=== PATIENT | female | born 1980 | race Caucasian/White ===

== ENCOUNTER 2020-10-06 14:35 | Outpatient (CLI) | payer OTHER, SELFPAY ==
--- NOTE | ~2020-10-06 | XR_ITS ---
XR foot LT min 3V DATE: 10/06/2020 14:58 INDICATION: Stress fracture, TECHNIQUE: 4 views COMPARISON: None FINDINGS: Mild plantar and posterior calcaneal enthesopathy. Pes planus. Diffuse osteopenia. There is mild osteoarthritic change at the first and second metatarsophalangeal joints. No fracture, dislocation, periosteal reaction or bone destruction is detected. IMPRESSION: No fracture detected Mild plantar and posterior calcaneal enthesopathy Reviewed, dictated and finalized at location A.
== END 2020-10-06 14:36 ==
PROVIDERS: Visit Provider Podiatrist Foot & Ankle Surgery
DX: M77.32 Calcaneal spur, left foot (principal)
CPT/HCPCS: 73630

== ENCOUNTER 2021-03-06 18:30 | Emergency (ER) | payer OTHER, SELFPAY ==
--- NOTE | ~2021-03-06 | XR_ITS ---
XR foot LT min 3V 03/06/2021 18:49 INDICATION: Left foot pain after trauma PROCEDURE: 4 views left foot COMPARISON: No prior studies for comparison. FINDINGS: Fracture, dislocation or subluxation is not identified. Lisfranc joint intact. The soft tis sues appear within normal limits. No foreign bodies are identified. IMPRESSION: 1: NO ACUTE BONE OR JOINT ABNORMALITY IDENTIFIED. Reviewed, dictated and finalized at location A.
--- NOTE | 2021-03-06 18:36 | ED.LOWEXIN ---
HPI - Extremity Injury (Lower) General Chief Complaint: Extremity Injury, Lower Stated Complaint: left foot pain Time Seen by Provider: 03/06/21 18:36 Source: patient and RN notes reviewed Mode of arrival: ambulatory Limitations: no limitations History of Present Illness HPI Narrative: 41-year-old female presents to the [facility] with complaints of left dorsal foot pain. Patient states that she dropped a board on her foot approximately 1830 last night. Has not taken anything for pain. Related Data Allergies Allergy/AdvReac Type Severity Reaction Status Date / Time morphine Allergy Severe PRESSURE Verified 03/06/21 18:32 IN CHEST-FELT LIKE HAVING HEART ATTACK codeine Allergy Intermediate Palpitation Verified 03/06/21 18:32 s prochlorperazine Allergy Intermediate Palpitation Verified 03/06/21 18:32 s HYDROCODONE BIT Allergy Severe Nausea and Uncoded 03/06/21 18:32 Vomiting Review of Systems Review of Systems: All systems reviewed & are unremarkable except as noted in HPI and below Constitutional: Constitutional: Reports no additional constitutional complaints Eyes: Eyes: Reports no additional eye complaints ENT: Reports system reviewed and no additional complaints, except as documented Cardiovascular: Cardiovascular: Reports no additional cardiovascular complaints Respiratory: Respiratory: Reports no additional respiratory complaints Musculoskeletal: Musculoskeletal: Reports as per HPI Comments: Left foot pain Integumentary/Breasts: Skin/Breast: Reports system reviewed and no additional complaints, except as docu, Denies pruritus and Denies rash Neurologic: Reports system reviewed and no additional complaints, except as documented Psychiatric: Psychiatric: Reports no additional psychiatric complaints Allergic/Immunologic: Allergic/Immunologic: Reports no additional allergic/immunologic complaints PMFSH Past Medical History Medical History (Updated 03/06/21 @ 19:01 by Paula Matos) Urolithiasis Surgical History Surgical History Hx of cholecystectomy Social History Social History Gender identity (if verbalized by the patient): Female Comments At the time of my signature, I reviewed and agree with the nursing past medical, surgical, social, and family history. There is no relevant family history pertinent to the patient complaint. Exam Const: General: healthy appearing, no acute distress and alert Nutritional Appearance: well nourished and obese Orientation/consciousness: patient oriented x3 Limitations: no limitations HENMT: Head: normal to inspection Eyes: Pupils: Equal, round and reactive pupils present Neck: Neck: normal visual inspection, no lymphadenopathy and no meningeal signs Chest: Chest palpation & inspection: normal inspection of the chest Resp: Effort & Inspection: normal respiratory effort Auscultation: clear to auscultation bilaterally Cardio: Rate: regular rate Rhythm: regular rhythm : General: Yes no CVA tenderness Skin: General skin exam: normal color Rashes: no rashes Wounds: no wounds Neuro: General: patient oriented x3, moves all extremities and no meningeal signs Speech: normal speech Gait exam (Neuro): gait abnormal (Limp favoring left side) Extrem: Left lower extremity: foot Ankle/foot/toe images: 1. Bruising swelling tenderness noted Course Course Emergency Course: Discharge instructions reviewed with patient, as well as provided in writing per nursing staff. The instructions also include specific and strict return/GO TO THE ER as well as f/u information. All questions have been answered, and the patient deny any further questions with discharge and discharge plan. Vital Signs Vital signs: Vital Signs Temperature 97.3 F L 03/06/21 18:37 Pulse Rate 108 H 03/06/21 18:37 Respiratory Rate 16
[2021-03-06 18:37] VITALS: BP 115/84; PULSE 108; RESP 16; TEMP 36.3; O2SAT 99
[2021-03-06 18:41] VITALS: BP 115/84; PULSE 108; RESP 16; TEMP 36.3; O2SAT 99
== END 2021-03-06 19:17 | disposition home or self-care (01) ==
PROVIDERS: Emergency Provider Nurse Practitioner
DX: S90.32XA Contusion of left foot, initial encounter (principal); W22.8XXA Striking against or struck by other objects, initial encounter
CPT/HCPCS: 73630; 99213; G0463

== ENCOUNTER 2021-06-22 13:21 | Emergency (ER) | payer OTHER, SELFPAY ==
[2021-06-22 13:28] VITALS: BP 118/78; PULSE 114; RESP 16; TEMP 37.3; O2SAT 99
--- NOTE | 2021-06-22 15:29 | ED.URI ---
HPI - URI/Sore Throat General Chief Complaint: Upper Respiratory Infection Stated Complaint: fever/vomiting/penny Time Seen by Provider: 06/22/21 15:20 Source: patient and RN notes reviewed Mode of arrival: ambulatory Limitations: no limitations History of Present Illness HPI Narrative: Patient presents today complaining of body aches, nasal congestion, nausea and vomiting, fever up to 102, loss of taste and smell. Symptoms began at 1:00 this morning. Last episode of vomiting was at 6:00 this morning. She has been taking ibuprofen with some relief. She is 2 days shy of being fully vaccinated against COVID-19. MD elicited complaint: fever and other (Body aches) Related Data Home Medications Medication Instructions Recorded Confirmed No Home Medications 06/22/21 06/22/21 Allergies Allergy/AdvReac Type Severity Reaction Status Date / Time morphine Allergy Severe PRESSURE Verified 06/22/21 15:09 IN CHEST-FELT LIKE HAVING HEART ATTACK codeine Allergy Intermediate Palpitation Verified 06/22/21 15:09 s prochlorperazine Allergy Intermediate Palpitation Verified 06/22/21 15:09 s HYDROCODONE BIT Allergy Severe Nausea and Uncoded 06/22/21 15:09 Vomiting Review of Systems Review of Systems: CONSTITUTIONAL: Denies chills, or sweats.+ Body aches fever EYES: Denies visual changes, redness, or discharge. ENT: Denies rhinorrhea, sore throat, or otalgia.+ Loss of taste and smell, congestion CARDIOVASCULAR: Denies chest pain, palpitations, or edema. RESPIRATORY: Denies cough or dyspnea. GASTROINTESTINAL: Denies abdominal pain, or diarrhea.+ Nausea and vomiting GENITOURINARY: Denies dysuria or hematuria. SKIN: Denies rash, itching, or wounds. MUSCULOSKELETAL: Denies back pain, joint pain, or myalgia. NEUROLOGIC: Denies headache, numbness, tingling, or weakness. PSYCH: Denies depression or anxiety. [facility] Past Medical History Medical History (Updated 06/22/21 @ 16:01 by Marilee Estes, [facility], ) Urolithiasis Surgical History Surgical History Hx of cholecystectomy Social History Social History Gender identity (if verbalized by the patient): Female Comments At time of signature, I have reviewed and agree with nursing past medical, surgical, social and family history unless otherwise noted. Please see nursing chart for further information. There is no relevant family history pertinent to the presenting complaint Exam Narrative: GENERAL: Mildly ill-appearing, well-nourished, and in no acute distress. HEAD: Normocephalic, atraumatic. EYES: EOMI. No redness or drainage. Conjunctivae normal. ENT: Mucous membranes pink and moist. Nares congested. No rhinorrhea. TMs normal bilaterally. Throat normal. Uvula midline. NECK: Normal AROM. Supple. No lymphadenopathy. CHEST: No respiratory distress. Clear to auscultation. HEART: Regular rate and rhythm. No murmur appreciated. Normal peripheral pulses. EXTREMITIES: Normal range of motion. No edema. SKIN: Warm, dry, no rash. Capillary refill normal. Normal skin turgor. NEURO: No focal deficits. Alert and oriented x3. Gait steady. PSYCH: Normal affect. No signs of depression or anxiety. Course Vital Signs Vital signs: Vital Signs Temperature 99.2 F 06/22/21 13:28 Pulse Rate 114 H 06/22/21 13:28 Respiratory Rate 16 06/22/21 13:28 Blood Pressure 118/78 06/22/21 13:28 Pulse Oximetry 99 06/22/21 13:28 Temperature 99.2 F 06/22/21 13:28 Pulse Rate 114 H 06/22/21 13:28 Respiratory Rate 16 06/22/21 13:28 Blood Pressure 118/78 06/22/21 13:28 Pulse Oximetry 99 06/22/21 13:28 Reviewed MDM - URI/Sore Throat Differential Diagnosis Differential diagnosis: Likely upper respiratory infection, viral infection, influenza, pharyngitis and other (COVID-19) Lab Data Attestation: I reviewed the patient's
[2021-06-23 20:34] LABS: SARS-CoV-2 RNA PCR Negative
== END 2021-06-22 16:15 | disposition home or self-care (01) ==
PROVIDERS: Emergency Provider Nurse Practitioner
DX: B34.9 Viral infection, unspecified (principal); Z20.822 Contact with and (suspected) exposure to COVID-19
CPT/HCPCS: 87426; 87804; 99213; C9803; G0463; U0003; U0005

== ENCOUNTER 2021-10-30 21:24 | Emergency (ER) | payer OTHER, SELFPAY ==
--- NOTE | ~2021-10-30 | CT_ITS ---
EXAMINATION: CT abdomen pelvis wo con DATE: 10/30/2021 23:51 INDICATION: Right flank and right lower quadrant abdominal pain. Hematuria. History of kidney stones. TECHNIQUE: Computed tomography (CT) of the abdomen and pelvis was performed without intravenous contr ast. Automated exposure control and iterative reconstruction technique were employed. Exam dose: 762 .45 mGy-cm total exam DLP. COMPARISON: None. FINDINGS: Right lower lobe calcified pulmonary granuloma. There is mild infiltrate and/atelectasis in the lower lung zones, particularly the lower lobes. There are 2 nonspecific approximately 4 4.5 mm left lower lobe pulmonary nodules. Normal heart size. No pericardial or pleural effusion. Small sliding hiatal hernia. Status post cholecystectomy. The liver, spleen, pancreas, bile ducts and pancreatic duct are unremark able. Normal morphology of the adrenal glands. Approximately 3.1 cm right renal cyst. There is mild to moderate right hydroureteronephrosis secondar y to a 4 mm obstructing stone of the proximal right ureter. No other urinary tract calculus or left-s ided hydronephrosis is noted. The urinary bladder is unremarkable. There is an IUD within the retroflexed uterus. The adnexal areas are unremarkable. There is mild atherosclerotic calcification but no aneurysm of the abdominal aorta. No intraperitonea l or retroperitoneal or pelvic mass lesion or adenopathy or ascites. There is a medially directed cecum consistent with retained cecal mesentery. Normal appendix. No bowel obstruction, bowel wall thickening, pneumatosis or intraperitoneal free air. Very small fat-containing umbilical hernia. L2 limbus vertebra. Congenital anomaly of T7 vertebral body. IMPRESSION: 4 mm proximal right ureteral calcified obstructing calculus with mild to moderate right hydroureteronephrosis 3.1 cm right renal cyst Small sliding hiatal hernia Normal appendix Retroflexed uterus with IUD Reviewed, dictated and finalized at Location A. Reviewed, dictated and finalized at location A. IMPRESSION: 4 mm proximal right ureteral calcified obstructing calculus with m ild to moderate right hydroureteronephrosis 3.1 cm right renal cyst Small sliding hiatal hernia Normal appendix Retroflexed uterus with IUD
[2021-10-30 21:30] VITALS: BP 143/94; PULSE 116; RESP 18; TEMP 36.5; O2SAT 99
--- NOTE | 2021-10-30 21:59 | ED.GENADULT ---
HPI - General Adult General Chief complaint: Abdominal Pain Stated complaint: abdominal pain and puking Time Seen by Provider: 10/30/21 21:39 Source: patient Mode of arrival: ambulatory Limitations: no limitations History of Present Illness HPI narrative: 41-year-old female presenting the emergency department for evaluation of right flank pain and right lower quadrant pain. Patient states the pain has been persistent today and patient has been taking ibuprofen for pain control without significant improvement. Patient does have a prior history of kidney stones and states this feels similar but is just in a different location. Related Data Allergies Allergy/AdvReac Type Severity Reaction Status Date / Time acetaminophen [From Vicodin] AdvReac Anxiety Verified 10/30/21 21:35 codeine AdvReac Anxiety Verified 10/30/21 21:35 hydrocodone [From Vicodin] AdvReac Anxiety Verified 10/30/21 21:35 morphine AdvReac Anxiety Verified 10/30/21 21:35 prochlorperazine AdvReac Anxiety Verified 10/30/21 21:35 [From Compazine] Review of Systems Review of Systems: CONSTITUTIONAL: Denies fever, chills, or sweats. EYES: Denies visual changes, redness, or discharge. ENT: Denies rhinorrhea, congestion, sore throat, or otalgia. CARDIOVASCULAR: Denies chest pain, palpitations, or edema. RESPIRATORY: Denies cough or dyspnea. GASTROINTESTINAL: Right lower quadrant pain and some right lower flank pain. GENITOURINARY: Denies any hematuria or pain with urination. SKIN: Denies rash or itching. MUSCULOSKELETAL: Denies back pain, joint pain, or myalgia. NEUROLOGIC: Denies headache, numbness, or weakness. PSYCHIATRIC: Denies anxiety or depression. Exam Narrative: APPEARANCE: Well appearing, no pain, no distress, well-nourished. HEAD: normocephalic, atraumatic. EYES: PERRLA/EOMI, conjunctivae clear. NOSE: Normal no drainage THROAT: Pharynx clear, no exudate. NECK: Supple. No adenopathy, no masses. RESPIRATORY: Airway patent, respirations nonlabored. Clear to auscultation bilaterally, no rales, rhonchi, wheezing. CARDIOVASCULAR: Regular rate and rhythm without murmurs rubs or gallops. ABDOMINAL: Soft, nontender, nondistended, normal bowel sounds MUSCULOSKELETAL: Moves all extremities. Strength/ROM intact, No edema, No calf tenderness. NEURO: Alert. Cranial nerves II through XII intact. Grossly intact SKIN: Warm, dry. Normal Color Course Course Emergency Course: Patient did feel improved with treatment. CT did show a 5 mm ureteral calculi in the proximal right ureter. Patient does have a leukocytosis of 14.5. UA is otherwise nonconcerning for underlying infection. Patient was provided follow-up with urology. All questions and concerns were addressed. Patient was in no distress at time of discharge from the emergency room. Vital Signs Vital signs: Vital Signs Temperature 97.7 F 10/30/21 21:30 Pulse Rate 116 H 10/30/21 21:30 Respiratory Rate 18 10/30/21 21:30 Blood Pressure 143/94 H 10/30/21 21:30 Pulse Oximetry 99 10/30/21 21:30 Temperature 97.7 F 10/30/21 21:30 Pulse Rate 75 10/31/21 03:00 Respiratory Rate 19 10/31/21 03:00 Blood Pressure 120/82 10/31/21 03:00 Pulse Oximetry 97 10/31/21 03:00 Medical Decision Making Vital Signs Vital Signs: Vital Signs Temperature 97.7 F 10/30/21 21:30 Pulse Rate 116 H 10/30/21 21:30 Respiratory Rate 18 10/30/21 21:30 Blood Pressure 143/94 H 10/30/21 21:30 Pulse Oximetry 99 10/30/21 21:30 Temperature 97.7 F 10/30/21 21:30 Pulse Rate 75 10/31/21 03:00 Respiratory Rate 19 10/31/21 03:00 Blood Pressure 120/82 10/31/21 03:00 Pulse Oximetry 97 10/31/21 03:00 Lab Data Lab results reviewed: Yes I reviewed the patient's lab results. Result diagrams: 10/30/21 22:37 10/30/21 22:37 Labs: Lab Results 10/30/21 10/30/21 10/30/21 Range/Units 22:37 22:37 22:37 WBC 14.5 H (4.5-10.0) K/mm3 RBC 5.08 (4.6-6.
[2021-10-30] MEDS: SODIUM CHLORIDE 0.9% IV 1,000 ML 999 ML IV CONT (22:29)
[2021-10-30] MEDS: ONDANSETRON INJ 4 MG/2 ML VIAL IV PUSH (22:29)
[2021-10-30] MEDS: fentaNYL CITRATE INJ (*CRX) 100 MCG/2 ML VIAL 50 MCG IV PUSH (22:29)
[2021-10-30 22:45] LABS: Basophils Absolute Auto 0.1 K/mm3 (0.0-0.1); Basophils Percent Auto 0.4 % (0.2-1.2); Eosinophils Absolute Auto 0.1 K/mm3 (0-0.3); Eosinophils Percent Auto 0.8 % (0-4.4); Hematocrit 45.6 % (42.0-52.0); Hemoglobin 14.5 g/dL (14.0-18.0); Immature Granulocyte Absolute 0.06 K/mm3 (0.00-0.031); Immature Granulocyte Percent A 0.4 % (0-0.5); Lymphocytes Absolute Auto 3.01 K/mm3 (0.9-3.2); Lymphocytes Percent Auto 20.8 % (18.3-44.2); Mean Corpuscular HGB Conc 31.8 g/dl (32-36); Mean Corpuscular Hemoglobin 28.5 pg (26-34); Mean Corpuscular Volume 89.8 fl (80-100); Mean Platelet Volume 10.3 fl (7.4-10.4); Monocytes Percent Auto 7.2 % (2.6-8.5); Neutrophils Absolute Auto 10.2 K/mm3 (1.3-6.7); Neutrophils Percent Auto 70.4 % (45.5-73.1); Platelet Count Result 383 k/mm3 (150-375); Red Blood Count 5.08 M/mm3 (4.6-6.20); Red Cell Distribution Width 13.7 % (11.5-14.5); White Blood Count 14.5 K/mm3 (4.5-10.0)
[2021-10-30 22:59] LABS: Alanine Aminotransferase 21 U/L (6-50); Albumin Level 4.2 g/dL (3.5-5.1); Alkaline Phosphatase 106 U/L (38-126); Anion Gap 6 mmol/L (8-16); Aspartate Amino Transferase 21 U/L (17-59); Bilirubin,Total 0.1 mg/dL (0.2-1.3); Blood Urea Nitrogen 18 mg/dL (9-20); Calcium 9.1 mg/dL (8.4-10.2); Carbon Dioxide 23 mmol/L (22-30); Chloride 106 mmol/L (98-107); Estimated CRCL calculation 103 ml/min; Estimated Glomerular Filt Rate > 60; Glucose 114 mg/dL (65-110); Lipase 145 U/L (23-300); Potassium 3.9 mmol/L (3.4-5.0); Sodium 135 mmol/L (137-145)
[2021-10-30 23:01] VITALS: BP 149/97; O2SAT 96
[2021-10-30 23:01] LABS: Lactic Acid Reflex 1.4 mmol/L (0.7-2.0)
[2021-10-30 23:12] LABS: Appearance Urine Clear (Clear); Bilirubin Urine Negative (Negative); Blood Urine 1+ (Negative); Color Urine Yellow (Yellow); Glucose Urine UA Negative (Negative); Ketones Urine Negative (Negative); Leukocyte Esterase Ur Negative LEU/UL (Negative); Nitrate Urine Negative (Negative); Protein Urine Negative (Negative); Specific Grav Ur 1.015 (1.001-1.035); Urobilinogen Urine 0.2 mg/dL (<2.0); pH Urine 5.5 (5.0-9.0)
[2021-10-30 23:17] LABS: Add Urine Microscopic? YES; Bacteria Urine Trace /hpf; Squamous Epithelial Cell Urine Few /hpf (Few); WBC Urine 0-3 /hpf
[2021-10-31 00:01] VITALS: BP 130/90; PULSE 79; RESP 16; O2SAT 96
[2021-10-31 00:31] VITALS: BP 136/95; PULSE 76; RESP 14; O2SAT 96
[2021-10-31 01:01] VITALS: BP 135/88; PULSE 84; RESP 18; O2SAT 96
[2021-10-31] MEDS: KETOROLAC 15 MG/ML VIAL (*BKC) IV PUSH (01:15)
[2021-10-31] MEDS: TAMSULOSIN HCL 0.4 MG CAPSULE PO (02:11)
[2021-10-31 03:00] VITALS: BP 120/82; PULSE 75; RESP 19; O2SAT 97
== END 2021-10-31 03:01 | disposition home or self-care (01) ==
PROVIDERS: Emergency Provider Emergency Medicine
DX: N13.2 Hydronephrosis with renal and ureteral calculous obstruction (principal)
CPT/HCPCS: 36415; 74176; 80053; 81001; 81025; 83605; 83690; 85025; 96361; 96374; 96375; 99284; A9270; J1885; J2405; J3010; J7030

== ENCOUNTER 2022-05-07 16:21 | Emergency (ER) | payer OTHER, SELFPAY ==
[2022-05-07 16:34] VITALS: BP 136/86; PULSE 112; RESP 18; TEMP 36.3; O2SAT 99
--- NOTE | 2022-05-07 18:01 | ED.URI ---
HPI - URI/Sore Throat General Chief Complaint: Upper Respiratory Infection Stated Complaint: Nausea,Cough,Sneezing Time Seen by Provider: 05/07/22 18:01 Source: patient Mode of arrival: ambulatory Limitations: no limitations History of Present Illness HPI Narrative: 42-year-old female presents with complaint of nasal congestion, sore throat, cough, fatigue, fever for 2 days. Also reports nausea, diarrhea. 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 Denies chest pain and shortness of breath. Taking Motrin to treat fever and pain. All systems reviewed and negative except as noted above. Related Data Home Medications Medication Instructions Recorded Confirmed No Home Medications 06/22/21 05/07/22 Allergies Allergy/AdvReac Type Severity Reaction Status Date / Time acetaminophen [From Vicodin] AdvReac Anxiety Verified 05/07/22 16:57 codeine AdvReac Anxiety Verified 05/07/22 16:57 hydrocodone [From Vicodin] AdvReac Anxiety Verified 05/07/22 16:57 morphine AdvReac Anxiety Verified 05/07/22 16:57 prochlorperazine AdvReac Anxiety Verified 05/07/22 16:57 [From Compazine] HYDROCODONE BIT Allergy Severe Nausea and Uncoded 05/07/22 16:57 Vomiting Review of Systems Review of Systems: CONSTITUTIONAL: Reports fever, chills, or sweats. EYES: Denies visual changes, redness, or discharge. ENT: reports rhinorrhea, congestion, sore throat. Denies otalgia. CARDIOVASCULAR: Denies chest pain, palpitations, or edema. RESPIRATORY: reports cough. Denies dyspnea. GASTROINTESTINAL: Denies abdominal pain, nausea, vomiting, or diarrhea. GENITOURINARY: Denies dysuria or hematuria. SKIN: Denies rash or itching. MUSCULOSKELETAL: Denies back pain, joint pain, or myalgia. NEUROLOGIC: Denies headache, numbness, or weakness. PSYCHIATRIC: Denies anxiety or depression. All other systems reviewed are negative, except as documented in HPI. [facility] Past Medical History Medical History (Updated 05/07/22 @ 18:22 by Sonya Duarte NP) Urolithiasis Surgical History Surgical History (Updated 11/01/21 @ 10:56 by Malaika Julian) Hx of cholecystectomy Social History Social History (System 11/01/21 @ 10:56 by Malaika Julian) Gender identity (if verbalized by the patient): Female Comments At time of signature, agree with nursing past medical, surgical, social and family history. There is no relevant family history pertinent to the presenting complaint. Exam Narrative: GENERAL: This is a well-nourished, well-developed patient, in no apparent distress. HEAD: normocephalic, atraumatic. EYES: PERRL. Sclera clear/white. Vision is grossly intact. EARS: External ears normal, auditory canals clear and without drainage, TMs normal without perforation. Hearing grossly intact. NOSE: External nose normal with no obvious nasal discharge, nares without redness, no rhinorrhea. THROAT: Mucous membranes moist, posterior pharynx clear. NECK: Neck supple, non-tender without lymphadenopathy, masses or thyromegaly. CARDIOVASCULAR: Regular rate and rhythm without murmurs, gallops, or rubs. RESPIRATORY: Clear to auscultation. Breath sounds equal bilaterally. No wheezes, rales, or rhonchi. SKIN: warm, Dry, intact with no suspicious lesions or rash, good texture and turgor. NEURO: awake, alert, and oriented to person, place and time. There were no obvious focal neurologic abnormalities. EXTREMITIES: No joint tenderness, effusion, or edema noted. Course Course Level of Care: Express Care Visit Vital Signs Vital signs: Vital Signs Temperature 36.3 C L 05/07/22 16:34 Pulse Rate 112 H 05/07/22 16:34 Respiratory Rate 18 05/07/22 16:34 Blood Pressure 136/86 05/07/22 16:34 Pulse Oximetry 99 05/07/22 16:34 Oxygen Delivery Room Air 05/07/22 16:34 Temperature 36.3 C L 05/07/22 16:34 Pulse Rate 112 H 05/07/22 16:34 Respiratory Rate 18 05/07/22 16:34 Blood Pressu
== END 2022-05-07 18:25 | disposition home or self-care (01) ==
PROVIDERS: Emergency Provider Nurse Practitioner Family; PCP Nurse Practitioner Family
DX: B34.9 Viral infection, unspecified (principal); Z20.822 Contact with and (suspected) exposure to COVID-19
CPT/HCPCS: 87081; 87426; 87804; 87880; 99213; C9803; G0463

== ENCOUNTER 2023-05-25 15:00 | Emergency (ER) | payer SELFPAY ==
[2023-05-25 15:12] VITALS: BP 129/76; PULSE 115; RESP 16; TEMP 39.2; O2SAT 99
[2023-05-25] MEDS: ONDANSETRON HCL ODT 4 MG TABLET SUBLINGUAL (15:26)
--- NOTE | 2023-05-25 15:53 | ED.NAVMDI ---
HPI - Nausea/Vomiting/Diarrhea General Chief complaint: Nausea/Vomiting/Diarrhea Stated complaint: Bodyaches/Vomiting Time Seen by Provider: 05/25/23 15:45 Source: patient and RN notes reviewed Mode of arrival: ambulatory Limitations: no limitations History of Present Illness HPI Narrative: Patient presents today complaining of nausea, vomiting, fever, body aches, headache since 1:00 a.m. this morning. Patient does not have a functioning thermometer at home and is unsure what her fever was denies abdominal pain or diarrhea. Daughter currently has strep throat. She took 1 4 mg Zofran at home 1 hour prior to arrival without relief of symptoms. She has not been able to keep down fluids all day. States she has vomited, ?many? times. When asked she states more than 10. Related Data Home Medications Medication Instructions Recorded Confirmed No Home Medications 06/22/21 05/25/23 Allergies Allergy/AdvReac Type Severity Reaction Status Date / Time acetaminophen [From Vicodin] AdvReac Anxiety Verified 05/25/23 15:08 codeine AdvReac Anxiety Verified 05/25/23 15:08 hydrocodone [From Vicodin] AdvReac Anxiety Verified 05/25/23 15:08 morphine AdvReac Anxiety Verified 05/25/23 15:08 prochlorperazine AdvReac Anxiety Verified 05/25/23 15:08 [From Compazine] Review of Systems Review of Systems: CONSTITUTIONAL: Denies chills, or sweats.+ body aches, fever EYES: Denies visual changes, redness, or discharge. ENT: Denies rhinorrhea, congestion, sore throat, or otalgia. CARDIOVASCULAR: Denies chest pain, palpitations, or edema. RESPIRATORY: Denies cough or dyspnea. GASTROINTESTINAL: Denies abdominal pain. + nausea, vomiting GENITOURINARY: Denies dysuria or hematuria. SKIN: Denies rash, itching, or wounds. MUSCULOSKELETAL: Denies back pain, joint pain, or myalgia. NEUROLOGIC: Denies numbness, tingling, or weakness.+ headache PSYCH: Denies depression or anxiety. [facility] Past Medical History Medical History Urolithiasis Surgical History Surgical History Hx of cholecystectomy Social History Social History Gender identity (if verbalized by the patient): Female Comments At time of signature, I have reviewed and agree with nursing past medical, surgical, social and family history unless otherwise noted. Please see nursing chart for further information. There is no relevant family history pertinent to the presenting complaint Exam Narrative: GENERAL: Ill-appearing, well-nourished, and in no acute distress. HEAD: Normocephalic, atraumatic. EYES: EOMI. No redness or drainage. Conjunctivae normal. ENT: Mucous membranes pink and moist. Throat normal. Uvula midline. NECK: Normal AROM. Supple. No lymphadenopathy. CHEST: No respiratory distress. Clear to auscultation. HEART: Regular rate and rhythm. No murmur appreciated. Normal peripheral pulses. ABDOMEN: Soft, nontender, nondistended, normal active bowel sounds. EXTREMITIES: Normal range of motion. No edema. SKIN: Warm, dry, no rash. Capillary refill normal. Normal skin turgor. NEURO: No focal deficits. Alert and oriented x3. Gait steady. PSYCH: Normal affect. No signs of depression or anxiety. Course Course Level of Care: Express Care Visit Vital Signs Vital signs: Vital Signs Temperature 102.6 F H 05/25/23 15:12 Pulse Rate 115 H 05/25/23 15:12 Respiratory Rate 16 05/25/23 15:12 Blood Pressure 129/76 05/25/23 15:12 Pulse Oximetry 99 05/25/23 15:12 Oxygen Delivery Room Air 05/25/23 15:12 Temperature 102.6 F H 05/25/23 15:12 Pulse Rate 115 H 05/25/23 15:12 Respiratory Rate 16 05/25/23 15:12 Blood Pressure 129/76 05/25/23 15:12 Pulse Oximetry 99 05/25/23 15:12 Oxygen Delivery Room Air 05/25/23 15:12 Reviewed MDM - Nausea/
[2023-05-25] MEDS: KETOROLAC (*BKC) 60 MG/2 ML VIAL IM (16:00)
== END 2023-05-25 16:18 | disposition home or self-care (01) ==
PROVIDERS: Emergency Provider Nurse Practitioner; PCP Nurse Practitioner Family
DX: R11.2 Nausea with vomiting, unspecified (principal); R50.9 Fever, unspecified; Z20.822 Contact with and (suspected) exposure to COVID-19
CPT/HCPCS: 87081; 87426; 87804; 87880; 96372; 99213; A9270; C9803; G0463; J1885

== ENCOUNTER 2023-09-11 08:57 | Outpatient (CLI) | payer BC, MEDICAID, SELFPAY | END 2023-09-11 08:58 | disposition home or self-care (01) | LOC: ANHSURGERY 09:07 | PROVIDERS: PCP Nurse Practitioner Family; Visit Provider Obstetrics & Gynecology | DX: Z01.818 Encounter for other preprocedural examination (principal); R10.2 Pelvic and perineal pain | CPT/HCPCS: 36415; 86850; 86900; 86901 ==

== ENCOUNTER 2023-09-12 03:09 | Day surgery (SDC) | payer BC, MEDICAID, SELFPAY ==
[2023-07-19 14:24] VITALS: BMI 34.3
--- NOTE | 2023-07-19 14:28 | PC.NURSE ---
Report to the Outpatient Waiting Room, entrance under the green pavilion located off [facility], at time 7:30 on date 07/31/23. Planned Procedure Time: 9:30. Time changes happen often and if your time is changed the preop area will call you the afternoon before. - You and your visitor will be asked to self-screen and do not enter if you have any COVID symptoms. - A mask is optional within the hospital at this time. Patients may have clear liquids (water, carbonated beverages, clear teas, apple juice) until 3 hours prior to surgery (6:30) with a maximum of 20 ounces. - No food from midnight until time of surgery Take the following medications with a SIP of water the morning of surgery: PAIN PILL IF NEEDED DO NOT STOP ANY OF YOUR OTHER PRESCRIPTION MEDICATIONS PRIOR TO SURGERY ?EXCEPT THE FOLLOWING Medications to discontinue per physician: N/A Date to take last dose: N/A Please no make-up, nail azeri, hairspray, perfume, deodorant, or body powder the day of surgery. No jewelry (including any body piercings) or valuables the day of surgery, leave them at home. Please take a shower or bath the night before, or the morning of, surgery with an antibacterial soap. Wear comfortable, loose fitting clothing. - Jewelry must be removed prior to entering the operating room. Rings and piercings that are not removed may be cut off. - The hospital will not accept responsibility for valuables. - Please leave all valuables, including medications, at home the day of surgery. If you are going home after surgery, a licensed jukebox route driver must drive you home. - NO public transportation without another adult if you receive anesthesia. - We recommend that an adult stay with you for 24 hours following discharge. - We also recommend that you do not drive, make important decision, drink alcoholic beverages, or take any drugs that were not prescribed by your health care provider for at least 24 hours after your discharge time. Follow any additional instructions given to you from your surgeon. If you or anyone in your household have experienced Covid symptoms in the past week, please notify your surgeon or the nurse liaison at the phone number below for possible testing. Telephone instructions given to PT - DAVIN PEREZ and asked if any additional questions and then verbalized understanding. Patient advised to call surgeon office or pre surgery nurse liaison [phone] if any additional questions.
--- NOTE | 2023-09-05 10:55 | PC.NURSE ---
Report to the Outpatient Waiting Room, entrance under the green pavilion located off [facility], at time 6:00 on date 09/12/23. Planned Procedure Time: 7:30. Time changes happen often and if your time is changed the preop area will call you the afternoon before. - You and your visitor will be asked to self-screen and do not enter if you have any COVID symptoms. - A mask is optional within the hospital at this time. Patients may have clear liquids (water, carbonated beverages, clear teas, apple juice) until 3 hours prior to surgery (4:30) with a maximum of 20 ounces. - No food from midnight until time of surgery Take the following medications with a SIP of water the morning of surgery: HYDROCODONE IF NEEDED DO NOT STOP ANY OF YOUR OTHER PRESCRIPTION MEDICATIONS PRIOR TO SURGERY ?EXCEPT THE FOLLOWING Medications to discontinue per physician: IBUPROFEN Date to take last dose: PER DR. DORADO Please no make-up, nail canadian, hairspray, perfume, deodorant, or body powder the day of surgery. No jewelry (including any body piercings) or valuables the day of surgery, leave them at home. Please take a shower or bath the night before, or the morning of, surgery with an antibacterial soap. Wear comfortable, loose fitting clothing. - Jewelry must be removed prior to entering the operating room. Rings and piercings that are not removed may be cut off. - The hospital will not accept responsibility for valuables. - Please leave all valuables, including medications, at home the day of surgery. If you are going home after surgery, a licensed refrigerated company driver must drive you home. - NO public transportation without another adult if you receive anesthesia. - We recommend that an adult stay with you for 24 hours following discharge. - We also recommend that you do not drive, make important decision, drink alcoholic beverages, or take any drugs that were not prescribed by your health care provider for at least 24 hours after your discharge time. Follow any additional instructions given to you from your surgeon. If you or anyone in your household have experienced Covid symptoms in the past week, please notify your surgeon or the nurse liaison at the phone number below for possible testing. Telephone instructions given to GENESIS JIN and asked if any additional questions and then verbalized understanding. Patient advised to call surgeon office or pre surgery nurse liaison [phone] if any additional questions.
[2023-09-12] VITALS (10 sets, daily range): BP systolic 104–130; BP diastolic 61–85; PULSE 71–98; RESP 12–20; TEMP 36.2–36.9; O2SAT 92–100
[2023-09-12] MEDS: ACETAMINOPHEN 500 MG TABLET 1000 MG PO (06:29)
[2023-09-12] MEDS: LACTATED RINGERS 1,000 ML 30 ML IV CONT ×2 (06:35→09:49)
[2023-09-12] MEDS: KETOROLAC 15 MG/ML VIAL (*BKC) IV PUSH (06:37)
[2023-09-12] MEDS: SCOPOLAMINE 1 MG PATCH 1 PATCH TRANSDERM (06:49)
--- NOTE | 2023-09-12 06:50 | WPDANESEPPF ---
Anes - Initial Pre Proc Eval Procedure: Operation Date: 09/12/23 07:30 Proposed Procedures p Total Laparoscopic Hysterectomy with Bilateral Salpingectomy - Michaela Phipps MD Date/Time: 09/12/23 06:50 Surgeon: Michaela Phipps MD Pre Op Diagnosis: pelvic pain Patient Data Age: 43 Gender: F Height: 1.63 m Weight: 88.55 kg Last Vital Signs Temp 36.4 C 09/12/23 06:28 Pulse 91 09/12/23 06:28 Resp 20 09/12/23 06:28 BP 121/85 09/12/23 06:28 Pulse Ox 99 09/12/23 06:28 O2 Del Method Room Air 09/12/23 06:28 Allergies Allergy/AdvReac Type Severity Reaction Status Date / Time cyclobenzaprine AdvReac Anxiety Verified 09/12/23 06:14 [From Flexeril] hydrocodone [From Vicodin] AdvReac Anxiety Verified 09/12/23 06:14 morphine AdvReac Anxiety Verified 09/12/23 06:14 prochlorperazine AdvReac Anxiety Verified 09/12/23 06:14 [From Compazine] Home Medications Medication Instructions Recorded Confirmed Type hydrocodone 5 mg-acetaminophen 325 1 tablet PO Q6H PRN Pain 07/19/23 09/05/23 History mg tablet ibuprofen 600 mg tablet 600 mg PO QID PRN Pain 09/05/23 09/05/23 History Patient hx anesthesia problems: none Family hx anesthesia problems: none Results Review: All pre-operative results and documents have been reviewed as part of the pre-operative evaluation. FORMERLY [facility] Past Medical History Medical History (Updated 09/12/23 @ 06:50 by Torito Campos MD) Obesity Urolithiasis Surgical History Surgical History Hx of cholecystectomy Social History Social History Smoking packs per day: 0.5 Smoking cigarettes per day: 10.0 Years smoked: 10 Smoking pack-years: 5.00 Smoking status: Current some day smoker Tobacco type: cigarettes and e-cigarettes/vaping Alcohol intake: never Substance use: never Substance use type: does not use Living arrangements: with family Gender identity (if verbalized by the patient): Female Spiritual care concerns: No Anes - Eval Final PreProcedure Day of Procedure 09/12/23 06:50 Patient weight: obese Heart: regular rate and rhythm Lungs: clear to auscultation Airway: Mallampati scale class II Neurological: alert and oriented ASA classification: II Emergent: no Anesthetic plan: proceed Anesthesia type and monitoring: general ETT and standard monitoring Results Review: All pre-operative results and documents have been reviewed as part of the pre-operative evaluation. Informed Consent: The patient's anesthetic plan and its attendant risks and benefits were discussed with the patient/family/POA. Questions were solicited and answers provided to the satisfaction of the patient/family/POA.
--- NOTE | 2023-09-12 07:18 | WPDHPUPDATE1 ---
History and Physical Update Update Date/Time: 09/12/23 07:18 History and Physical has been reviewed, including an updated exam of the patient. There are NO changes in the patient's condition. Risks, benefits, and alternatives have been discussed and questions answered. Patient agrees to proceed with procedure.
[2023-09-12] MEDS: ceFAZolin SODIUM 1 GM VIAL (07:26)
[2023-09-12] MEDS: ceFAZolin 2 GM/D5W 50 ML 2 GM/50 ML BAG IVPB (07:35)
--- NOTE | 2023-09-12 09:53 | SUR.OPER ---
new krishna catheter inserted at 094o by Samanta Flores RN
[2023-09-12] MEDS: fentaNYL CITRATE INJ (*CRX) 100 MCG/2 ML VIAL 25 MCG IV PUSH ×8 (09:55→10:12)
--- NOTE | 2023-09-12 10:02 | W.PM.PROC2 ---
Procedure Note - Detailed Date of Procedure 09/12/23 Pre-op Diagnosis pelvic pain Post-op Diagnosis Same Procedure Performed Total laparoscopic hysterectomy. bilateral salpingectomy Surgeon Michaela Phipps MD Anesthesia General Indications Pelvic pain Findings mildly enlarged uterus, scarring in the right parametrium, normal-appearing ovaries and fallopian tubes. Description of Procedure This patient was taken to the operating room. She was prepped and draped in the dorsal lithotomy position after induction of general anesthesia. The uterine manipulator and Fara cup were placed. This was done with a speculum and tenaculum. The speculum was placed. The cervix was grasped with a tenaculum. The stay sutures were placed at 3 and 9:00 a.m.. The stay sutures of 0 Vicryl were brought through the appropriately sized Fara cup. The tip of the RIN manipulator was placed in the intrauterine cavity. The cup was slid into place around the cervix and into the fornices. It was locked into place. The sutures were then wrapped around the handle and tied under tension. A 5 mm skin incision was made in the left upper quadrant the abdomen. A 5 mm trocar was inserted into the intrauterine cavity under direct visualization of the scope. Pneumoperitoneum was achieved. A left lower quadrant 11 mm incision was made with scalpel. An 11 mm trocar was inserted into the anterior abdominal cavity under direct visualization the scope. A 5 mm infraumbilical incision was made with a scalpel and a 5 mm trocar was inserted the intra-abdominal cavity under direct visualization of the scope. Bilateral ureteral lysis was performed. This was done from the pelvic brim down to the uterine artery. This was done with careful dissection using sharp and blunt dissection. The fallopian tubes were removed bilaterally. The mesosalpinx around the fallopian tubes were cauterized transected with LigaSure cautery. This was done in a bilateral fashion from the ovary to the uterine cornua. The fallopian tube was transected at the uterine cornu and amputated bilaterally. The tube was taken out the left lower quadrant trocar site. In a stepwise fashion along the lateral aspects of the uterus the round ligament and broad ligaments were cauterized transected down to the level of the uterine arteries. A bladder flap was created in the bladder was moved distally to the end of the cervix and over the Fara cup. The bilateral uterine arteries were cauterized and transected. Colpotomy was then performed. In a circumferential fashion the vagina was transected using unipolar cautery. The incision was made down on the Fara cup. when the colpotomy was completed, the uterus and cervix were taken out through the vagina. A pneumo occluder was placed in the vagina. The vaginal cuff was closed with a 0 V lock suture in a running fashion. The pelvis was irrigated with copious amounts antibiotic irrigation. The ureters were again examined and found to be intact and flowing freely under the uterine arteries into the bladder. The bladder was intact. It was examined directly. Cystoscopy was performed after administration of methylene blue. The cystoscope was inserted. Bladder was distended with fluid. The ureteric meatus was observed bilaterally. Blue fluid was seen to egress bilaterally. The bladder was drained and the cystoscope was withdrawn. The vagina was irrigated with Betadine solution after removal of the Pneumo occluder. The patient was taken to recovery room. She was stable condition. Sponge lap and needle counts were correct x2. Estimated Blood Loss 100 Drains Yes Packing No Pathology Yes Complications No immediate complications Condition Stable Disposition Floor
[2023-09-12] MEDS: HYDROmorphone HCL INJ (*CRX) 1 MG/ML SYR 0.5 MG IV PUSH ×4 (10:14→10:59)
[2023-09-12] MEDS: DEXTROSE 5%/0.45% SOD CHL 1,000 ML 125 ML IV CONT (11:25)
[2023-09-12] MEDS: SIMETHICONE 80 MG TAB.CHEW PO (12:38)
[2023-09-12] MEDS: KETOROLAC 30 MG/ML VIAL (*BKC) IV PUSH ×2 (14:53→23:18)
[2023-09-13 04:20] VITALS: BP 113/63; PULSE 75; RESP 20; TEMP 36.7; O2SAT 92
[2023-09-13] MEDS: SIMETHICONE 80 MG TAB.CHEW PO ×2 (04:25→09:31)
[2023-09-13] MEDS: HYDROcodone/acetaminophen (*CRX) 10-325 MG TABLET 1 TAB PO (04:26)
[2023-09-13 07:50] VITALS: BP 99/70; PULSE 67; RESP 16; TEMP 36.7; O2SAT 95
--- NOTE | 2023-09-13 08:26 | PM.GYNPNOP ---
PSYCHOTHERAPIST SOCIAL WORKER - A/P Postoperative Procedures: Procedures Operation Date: 09/12/23 07:30 Actual Procedure Side Surgeon p Total Laparoscopic Hysterectomy with Bilateral Salpingectomy and cystoscopy Bilateral Michaela Phipps MD Postoperative day: 1 Postoperative status: doing well Postoperative plan: see orders Time Spent With Patient Time: Total time spent is greater than 50% in coordination of care (as documented) at patient's floor/unit and/or counseling patient: Time with patient: less than 15 minutes PSYCHOTHERAPIST SOCIAL WORKER- PN:Subj Post-Op Subjective Date/time seen: 09/13/23 08:26 Subjective: patient reports feeling better, patient has no complaints and pain is well controlled Exam Const: General: healthy appearing, comfortable and no acute distress Resp: Auscultation: clear to auscultation bilaterally, no rales, no rhonchi and no wheezes Cardio: Rate: regular rate Heart sounds: no click, no murmurs and no rubs GI: Inspection: non-distended Auscultation: normal bowel sounds Extrem: General: normal to inspection, no pedal edema and no calf tenderness PSYCHOTHERAPIST SOCIAL WORKER - PN: Obj Data Vital Signs Vital Signs: Vital Signs - 24 hr 09/12/23 09:49 09/12/23 10:00 09/12/23 10:15 Temperature 97.1 F L Pulse Rate 98 94 90 Respiratory Rate 12 18 14 Blood Pressure 128/81 130/79 116/75 Pulse Oximetry 99 100 95 Oxygen Delivery Simple Face Mask Room Air Room Air Oxygen Flow Rate 8 09/12/23 10:30 09/12/23 10:45 09/12/23 11:15 Temperature 97.5 F L Pulse Rate 77 79 85 Respiratory Rate 14 14 18 Blood Pressure 104/61 113/73 123/80 Pulse Oximetry 95 95 94 Oxygen Delivery Room Air Room Air Oxygen Flow Rate 09/12/23 11:15 09/12/23 17:02 09/12/23 17:02 Temperature 98.1 F Pulse Rate 92 Respiratory Rate 16 Blood Pressure 113/73 Pulse Oximetry 92 Oxygen Delivery Room Air Room Air Oxygen Flow Rate 09/12/23 18:50 09/12/23 23:20 09/13/23 04:20 Temperature 98.2 F 98.4 F 98.1 F Pulse Rate 72 71 75 Respiratory Rate 18 18 20 Blood Pressure 114/72 121/77 113/63 Pulse Oximetry 93 92 92 Oxygen Delivery Oxygen Flow Rate Intake/Output Intake/Output: Intake & Output 09/10/23 09/11/23 09/12/23 09/13/23 23:59 23:59 23:59 23:59 Intake Total 900 Output Total 780 Balance 120 Meds/Results Medications: Active Medications Generic Name Dose Route Start Last Admin Trade Name Freq PRN Reason Stop Dose Admin Hydrocodone Bitart/Acetaminophen 1 tab 09/12/23 11:04 Hydrocodone/Acetaminophen (*Crx) 5-325 Mg Tablet PO Q3H PRN Pain Rated 5 or Less Hydrocodone Bitart/Acetaminophen 1 tab 09/12/23 11:04 09/13/23 04:26 Hydrocodone/Acetaminophen (*Crx) 10-325 Mg Tablet PO 1 tab Q3H PRN Administration Pain Rated 6 or Greater Dextrose/Sodium Chloride 1,000 mls @ 125 mls/hr 09/12/23 11:04 09/13/23 04:26 Dextrose 5% Sodium Chloride 0.45% IV CONT Not Given .Q8H [place] Ibuprofen 600 mg 09/12/23 11:04 Ibuprofen 600 Mg Tablet PO Q6H PRN Cramping Ketorolac Tromethamine 30 mg 09/12/23 11:04 09/12/23 23:18 Ketorolac 30 Mg/Ml Vial (*Bkc) IV PUSH 09/17/23 11:03 30 mg Q6H PRN Administration Pain Rated 4-6 Naloxone HCl 0.1 mg 09/12/23 11:04 Naloxone Hcl 0.4 Mg/Ml Vial IV PUSH Q2M PRN Respiratory rate less than 10 Ondansetron HCl 4 mg 09/12/23 11:04 Ondansetron Inj 4 Mg/2 Ml Vial IV PUSH Q6H PRN Nausea And Vomiting Simethicone 80 mg 09/12/23 12:00 09/13/23 04:25 Simethicone 80 Mg Tab.Chew PO 80 mg TIDWM [place] Administration
== END 2023-09-13 10:18 | disposition home or self-care (01) ==
LOC: ANHSURGERY 06:51 → ANHOB2 11:06
PROVIDERS: PCP Nurse Practitioner Family; Visit Provider Obstetrics & Gynecology
PROC: 0UT9FZZ Resection of Uterus, Via Natural or Artificial Opening With Percutaneous Endoscopic Assistance (ICD-10-PCS; CPT 58571; principal; 2023-09-12 07:30)
DX: N80.00 Endometriosis of the uterus, unspecified (principal); N88.8 Other specified noninflammatory disorders of cervix uteri; N83.8 Other noninflammatory disorders of ovary, fallopian tube and broad ligament; F17.210 Nicotine dependence, cigarettes, uncomplicated; F17.290 Nicotine dependence, other tobacco product, uncomplicated; E66.9 Obesity, unspecified; Z68.33 Body mass index [BMI] 33.0-33.9, adult
CPT/HCPCS: 58571; 36415; 86850; 86900; 86901; 88307; 99199; A9270; J0690; J1170; J1885; J2250; J3010; J7030; J7120; Q9968

== ENCOUNTER 2025-02-06 17:59 | Emergency (ER) | payer OTHER, SELFPAY ==
--- NOTE | ~2025-02-06 | CT_ITS ---
CLINICAL INDICATION: Flank pain COMPARISON: 10/30/2021 and dating back to 07/25/2015. TECHNIQUE: Multiple contiguous axial images of the abdomen and pelvis were performed without the admi nistration of intravenous contrast The dose-length product (DLP) was 217.38 mGy-cm. Automated exposure control and iterative reconstruction technique were employed. FINDINGS/OBSERVATIONS: Visualized lower thorax: Bibasilar atelectasis, right greater than left. The remainder of the lungs are otherwise clear The heart is of normal size, without pericardial effusion. Small hiatal hernia is present. Liver: The liver demonstrates homogeneous attenuation and is not enlarged. Gallbladder and biliary system: The gallbladder is surgically absent. Pancreas: Limited evaluation of the pancreas secondary to the lack of intravenous contrast. Spleen: The spleen demonstrates homogeneous attenuation and is not enlarged. Kidneys: Redemonstration of a fluid attenuation focus within the lower pole of the right kidney, unch anged in attenuation (representing simple fluid) since prior study performed in 2021 and dating back to 07/25/2015. This (likely) cyst has increased in size from previous studies now measuring 5 cm in gr eatest dimension The remainder of the bilateral kidneys are otherwise unremarkable, without hydronephrosis or renal ca lculi. Adrenal glands: Unremarkable. Gastrointestinal tract: Significant fecal stasis within the colon. Appendix: The air-filled appendix is of normal caliber (axial series, images 113 through 128). Vasculature: Unremarkable. Lymph nodes: Limited evaluation without intravenous contrast. Pelvic structures: The bladder is compressed, limiting its evaluation. The uterus is either surgically absent or atrophic. Body wall and musculoskeletal: Redemonstration of avulsion fracture of the superior endplate of L2. Remainder of the lumbar spine is unremarkable. IMPRESSION: No obstructive uropathy. Increase in size of a (likely) cyst within the lower pole of the right kidney, unchanged in morpholog y dating back to 2015. Reviewed, dictated and finalized at location A. IMPRESSION: No obstructive uropathy. Increase in size of a (likely) cyst within the lower pole of the right kidney, unchanged in morphology dating back to 2015.
--- OUTSIDE RECORDS SUMMARY | 2025-02-06 18:01 | XMS_ITS | Clinical Summary ---
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 Gender Identity Not on file Sexual Orientation Not on file Plan of Treatment Health Maintenance Due Date Last Done Comments Hepatitis C Virus (HCV) Screening 1978 Hepatitis B Immunization (1 of 3 - 19+ 3-dose series) 1997 Pap Smear 1999 Cervical Cancer Screening (CCS) 02/28/2008 HPV/Cotest 02/28/2008 Cologuard 2023 Colonoscopy 2023 Colorectal Cancer Screening 2023 Immunochemical Fecal Occult Blood 2023 SARS-COV-2 Immunization ( season) 2024 06/12/2021, 05/22/2021 Influenza Immunization (#1) 2025 Respiratory Syncytial Virus (RSV) Immunization (Adult) (1 - 1-dose 75+ series) 2053 DTaP/Tdap/Td Immunization Discontinued 12/06/2014 TdaP Immunization Completed 12/06/2014 Human Papillomavirus (HPV) Immunization Aged Out No longer eligible based on patient's age to complete this topic Meningococcal Immunization (ACWY) Aged Out No longer eligible based on patient's age to complete this topic Pneumococcal Immunization Combined Aged Out No longer eligible based on patient's age to complete this topic Rotavirus Immunization Aged Out No lo nger eligible based on patient's age to complete this topic
--- OUTSIDE RECORDS SUMMARY | 2025-02-06 18:01 | XMS_ITS | Clinical Summary ---
Author Organization [facility] al Address [address] [place] [address] Care Team Providers Care Zone Manager Name Role Phone No, Physician Primary Care Provider [phone] Allergies Active Allergy Reactions Criticality Noted Date Comments Codeine Hydrocodone-Acetaminophen Morphine Prochlorperazine Active Problems Problem Noted Date Diagnosed Date Mass of breast 08/02/2016 Social History Tobacco Use Types Packs/Day Years Used Date Smoking Tobacco: Some Days Personal Safety Answer Date Recorded Getting School Help Needed Not on file 08/18 Comments Unknown Sex and Gender Information Value Date Recorded Sex Assigned at Not on file Legal Sex Female 3:44 AM TRIMMER HELPER Gender Identity Not on file Sexual Orientation Not on file Obstetrics History Last Filed Vital Signs Vital Sign Reading Time Taken Comments Blood Pressure 129/85 05/24/2021 10:44 PM TRIMMER HELPER Pulse 91 05/24/2021 10:44 PM TRIMMER HELPER Temperature 37.3 C (99.2 F) 05/24/2021 9:48 PM TRIMMER HELPER Respiratory Rate 18 05/24/2021 10:44 PM TRIMMER HELPER Oxygen Saturation 97% 05/24/2021 10:44 PM TRIMMER HELPER Inhaled Oxygen Concentration - - Weight 92.2 kg (203 lb 4.2 oz) 05/24/2021 9:48 P M TRIMMER HELPER Height 162.6 cm (5' 4) 05/24/2021 9:48 PM TRIMMER HELPER Body Mass Index 34.89 05/24/2021 9:48 PM TRIMMER HELPER Plan of Treatment Not on file Insurance ON LICENSE OF [facility] [email or web address] [facility] Address: [facility] [id number] [place] [address] Care Teams Zone Manager Relationship Specialty Start Date End Date No, Physician PCP - General 05/24/21
--- OUTSIDE RECORDS SUMMARY | 2025-02-06 18:01 | XMS_ITS | Clinical Summary ---
Author Organization [facility] Address [address] [place] [id number] Care Team Providers Care Tape Cutter Name Role Phone None, Provider MD Primary Care Provider Unavaila ble Allergies Active Allergy Reactions Criticality Noted Date Comments Codeine Palpitations Low 08/24/2017 Prochlorperazine Anxiety Low 08/24/2017 Hydrocodone Palpitations Low 08/24/2017 Influenza Vaccines Unknown High 08/24/2017 Morphine Palpitations,Chest pressure Low 08/25/19 18 Medications No known medications Active Problems Patient Care Coordination No te Formatting of this note migh t be different from the original. Pt does not have PCP No additional problems on file Family History Medical History Relation Comments Diabetes Father Heart Disease Father Hypertension Father Thyroid Mother Relation Status Comments Father Mother Social History Tobacco Use Types Packs/Day Years Used Date Smoking Tobacco: Every Day Cigarettes Smokeless Tobacco: Never Tobacco Cessation:Ready to Q uit: No; Counseling Given: No Alcohol Use Standard Drinks/Week Comments Yes 0 (1 standard drink = 0.6 oz pur e alcohol) rarely Comments No Sex and Gender Information Value Date Recorded Sex Assigned at Not on file Legal Sex Female 5:32 PM CDT Gender Identity Not on file Sexual Orientation Not on file Last Filed Vital Signs Vital Sign Reading Time Taken Comments Blood Pressure 110/72 06/11/2023 1:57 PM GREEN BELT Pulse 78 06/11/2023 1:57 PM GREEN BELT Temperature 36.2 C (97.2 F) 06/11/2023 10:39 AM GREEN BELT Respiratory Rate 16 06/11/2023 1:57 PM GREEN BELT Oxygen Saturation 98% 06/11/2023 1:57 PM GREEN BELT Inhaled Oxygen Concentration - - Weight 87.9 kg (193 lb 12.6 oz) 023 10:39 AM GREEN BELT Height 162.6 cm (5' 4) 06/11/2023 10:3 9 AM GREEN BELT Body Mass Index 33.26 06/11/2023 10:39 AM GREEN BELT Plan of Treatment Health Maintenance Due Date Last Done Comments Cervical Cancer Screening Pa p Smear (Age 30 to 64) Every 3 Years 1978 Colorectal Cancer Screening Colonoscopy (10 Years) 1978 Annual Physical 1981 Hepatitis C 02/28/1996 Hepatitis B Vaccines (1 of 3 - 19+ 3-dose series) 1997 Pneumococcal Vaccine: Pediatrics (0 to 5 Years) and At-Risk Patients (6 to 49 Years) (1 of 2 - PCV) 1997 Cervical Cancer Screening Pa p with HPV Testing (Age 30 to 64) Every 5 Years 02/28/2008 Cervical Cancer Screening wi th HPV 02/28/2008 Mammogram Screening 2018 COVID-19 Vaccine (2023-2 5 season) 2024 06/12/2021, 05/22/2021 DTaP, Tdap and Td Vaccines ( 3 - Td or Tdap) 07/21/2031 07/21/2021, 12/06/2014 Meningococcal B Vaccine Aged Out No l onger eligible based on patient's age to complete this topic Meningococcal Vaccine Aged Out No dequan silvia eligible based on patient's age to complete this topic RSV Immunizations Under 20 Months Aged Out No longer eligible b ased on patient's age to complete this topic [place] [address] Care Teams Tape Cutter Relationship Specialty Start Date End Date None, Provider, PCP - General 05/05/18
[2025-02-06 18:17] VITALS: BP 145/86; PULSE 100; RESP 16; TEMP 36.4; O2SAT 99
[2025-02-06 18:28] LABS: BEDSIDEPREGUCG Negative (Negative)
--- NOTE | 2025-02-06 18:35 | ED.BACK ---
HPI - Back Pain/Injury General Chief Complaint: Back Pain/Injury Stated Complaint: I THINK I HAVE A KIDENY STONE Time Seen by Provider: 02/06/25 18:22 History of Present Illness HPI Narrative: This is a 44-year-old female history of kidney stones, GERD who presents to the ED for flank pain. Patient states that for the last 5 hours or so, she has had right flank pain that feels similar to her prior episodes of kidney stones. She states that she has had 1 prior lithotripsy and stenting but has had multiple other kidney stones since then did not require any intervention. She has had nausea but no vomiting. Denies fevers, chills, chest pain, shortness of breath, changes in urination. Related Data Home Medications ?Medication ?Instructions ?Recorded ?Confirmed ?Last Taken ?Type ibuprofen 600 mg tablet 600 mg PO QID PRN Pain 09/05/23 09/05/23 Unknown History Allergies Allergy/AdvReac Type Severity Reaction Status Date / Time cyclobenzaprine (From AdvReac Anxiety Verified 02/06/25 18:22 Flexeril) hydrocodone (From Vicodin) AdvReac Anxiety Verified 02/06/25 18:22 morphine AdvReac Anxiety Verified 02/06/25 18:22 prochlorperazine (From AdvReac Anxiety Verified 02/06/25 18:22 Compazine) Review of Systems Review of Systems: Gen.: Denies fevers or chills Eyes: Denies eye pain or visual change ENT: Denies congestion Respiratory: Denies shortness of breath or cough CV: Denies chest pain or palpitations GI: Denies abdominal pain nausea, emesis or diarrhea denies burning, urgency, frequency or hematuria Musculoskeletal: Denies back pain or muscle pain Neuro: Denies numbness, tingling, weakness or focal weakness Skin: Denies rash Except as documented, all other systems reviewed and negative [facility] Past Medical History Medical History Obesity Urolithiasis Surgical History Surgical History Hx of cholecystectomy Social History Social History Smoking packs per day: 0.5 Smoking cigarettes per day: 10.0 Years smoked: 10 Smoking pack-years: 5.00 Smoking status: Current some day smoker Tobacco type: cigarettes and e-cigarettes/vaping Alcohol intake: never Substance use: never Substance use type: does not use Living arrangements: with family Gender identity (if verbalized by the patient): Female Spiritual care concerns: No Exam Narrative: APPEARANCE: No acute distress, nontoxic, resting in bed EYES: EOMI HEENT: Normocephalic, atraumatic, OMM RESPIRATORY: No respiratory distress Clear to auscultation bilaterally with no rhonchi wheezing or rales. CARDIOVASCULAR: Regular rate and rhythm without murmurs rubs or gallops. ABDOMINAL: Soft, nontender, nondistended, no rebound or guarding. Mild CVA ttp on the right MUSCULOSKELETAl: Moves all extremities. No clubbing, cyanosis or edema. NEURO: Awake and alert. Following commands, speech normal, no focal deficits SKIN:: Warm, dry. No rashes lesions or abrasions PSYCHIATRIC: Normal affect/mood, Course Vital Signs Vital signs: Vital Signs Temperature 97.6 F 02/06/25 18:17 Pulse Rate 100 02/06/25 18:17 Respiratory Rate 16 02/06/25 18:17 Blood Pressure 145/86 H 02/06/25 18:17 Pulse Oximetry 99 02/06/25 18:17 Oxygen Delivery Room Air 02/06/25 18:17 Temperature 97.6 F 02/06/25 18:17 Pulse Rate 100 02/06/25 18:17 Respiratory Rate 16 02/06/25 18:17 Blood Pressure 145/86 H 02/06/25 18:17 Pulse Oximetry 99 02/06/25 18:17 Oxygen Delivery Room Air 02/06/25 18:17 MDM - Back Pain/Injury MDM Narrative Medical decision making narrative: 44 yo female presents to the ED for right flank pain. Mild CVA tenderness on the right. VSS. Patient comfortable appearing in bed. UA was clear. CBC and CMP without significant abnormalities. CT abd/pelvis showed no evidence of ureterolithiasis or other acute abnormalities. Suspect patient's discomfort is msk in origin. She was given toradol with mild improvement of symptoms. She will be given toradol for home. Did not want muscle relaxers. She was advised to follow up with her pcp in the next week for reevaluation. Patient was agreeable to this plan. Given strict return precautions. Differential Diagnosis Differential diagnosis: Likely strain of lumbar region, renal colic, pyelonephritis and other (UTI) Medical Records Attestation: I reviewed the patient's medical records. Lab Data Attestation: I reviewed the patient's lab results. 02/06/25 18:21 02/06/25 18:46 Labs: Lab Results 02/06/25 02/06/25 02/06/25 Range/Units 18:21 18:26 18:46 WBC 8.8 (4.5-10.0) K/mm3 RBC 4.45 (4.2-5.4) M/mm3 Hgb 12.9 (12.0-15.0) g/dL Hct 40.1 (37.0-47.0) % MCV 90.1 (80-100) fl MCH 29.0 (26-34) pg MCHC 32.2 (32-36) g/dl RDW 13.1 (11.5-14.5) % Plt Count 378 H (150-375) k/mm3 MPV 10.4 (7.4-10.4) fl Immature Gran % (Auto) 0.2 (0-0.5) % Neut % (Auto) 56.3 (45.5-73.1) % Lymph % (Auto) 34.4 (18.3-44.2) % Simpson % (Auto) 7.5 (2.6-8.5) % Eos % (Auto) 0.9 (0-4.4) % Baso % (Auto) 0.7 (0.2-1.2) % Lymph # (Auto) 3.02 (0.9-3.2) K/mm3 Simpson # (Auto) 0.7 H (0.1-0.6) K/mm3 Eos # (Auto) 0.1 (0-0.3) K/mm3 Baso # (Auto) 0.1 (0.0-0.1) K/mm3 Abs Immat Gran (auto) 0.02 (0.00-0.031) K/mm3 Absolute Neuts (auto) 4.9 (1.3-6.7) K/mm3 Absolute Nucleated RBC 0.000 (0.0-0.012) K/mm3 Nucleated RBC % 0.0 (0.0-0.2) % Sodium 137 138 (137-145) mmol/L Potassium 3.6 3.7 (3.4-5.0) mmol/L Chloride 105 106 (98-107) mmol/L Carbon Dioxide 23 25 (22-30) mmol/L Anion Gap 9 7 (4-12) mmol/L BUN 18 H 17 (7-17) mg/dL Creatinine 0.62 L 0.63 L (0.7-1.0) mg/dL Estim Creat Clear Calc 94 92 ml/min Estimated GFR > 60 > 60 (59 - ) Glucose 146 H 126 H (65-110) mg/dL Calcium 8.9 8.9 (8.4-10.2) mg/dL Total Bilirubin 0.3 0.2 (0.2-1.3) mg/dL AST 23 22 (14-36) U/L ALT 19 18 (6-35) U/L Alkaline Phosphatase 68 67 (38-126) U/L Total Protein 7.0 6.9 (6.3-8.2) g/dL Albumin 4.0 4.0 (3.5-5.1) g/dL Urine Color Yellow (Yellow) Urine Appearance Clear (Clear) Urine pH 6.0 (5.0-9.0) Ur Specific [place] 1.014 (1.001-1.035) Urine Protein Negative (Negative) mg/dL Urine Glucose (UA) Negative (Negative) mg/dL Urine Ketones Negative (Negative) mg/dL Ur Blood (Man) Negative (Negative) Urine Nitrate Negative (Negative) Urine Bilirubin Negative (Negative) Urine Urobilinogen 0.2 (<2.0) mg/dL Leukocyte Esterase Rfl Negative (Negative) JANICE/UL POC Urine HCG, Qual Negative (Negative) Imaging Data Radiologist's impression: Impressions Abdomen/Pelvis CT 02/06/25 18:58 IMPRESSION: No obstructive uropathy. Increase in size of a (likely) cyst within the lower pole of the right kidney, unchanged in morphology dating back to 2016. Discharge Plan Discharge Clinical Impression: Acute flank pain Patient Disposition: Home Condition: Stable Instructions: Antibiotic Form, Flank Pain (ED) Additional Instructions: Take toradol as prescribed. Follow up with your pcp in the next week for reevaluation. Return to the ED for new or worsening symptoms. Patient Language: Tunisian Prescriptions: New ketorolac 10 mg tablet 10 mg PO Q8H PRN (Reason: pain) Qty: 9 0RF Rx Instructions: maximum total duration of 5 days from all oral, intranasal, or parenteral formulations ondansetron 4 mg tablet,disintegrating 4 mg PO Q8H PRN (Reason: nausea and vomiting) Qty: 14 0RF No Action ibuprofen 600 mg Tablet 600 mg PO QID PRN (Reason: Pain) oxycodone-acetaminophen 5-325 mg tablet 1 tablet PO Q4H PRN (Reason: pain) Qty: 25 0RF Follow-up/Referrals: Jaxson,ESTEFANIA Nelson [Primary Care Provider] -
--- OUTSIDE RECORDS SUMMARY | 2025-02-06 18:37 | XMS_ITS | Clinical Summary ---
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
--- OUTSIDE RECORDS SUMMARY | 2025-02-06 18:37 | XMS_ITS | Clinical Summary ---
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 Pulse 78 06/11/2023 1:57 PM PLUMBING INSPECTOR Temperature 36.2 C (97.2 F) 06/11/2023 10:39 AM PLUMBING INSPECTOR Respiratory Rate 16 06/11/2023 1:57 PM PLUMBING INSPECTOR Oxygen Saturation 98% 06/11/2023 1:57 PM PLUMBING INSPECTOR Inhaled Oxygen Concentration - - Weight 87.9 kg (193 lb 12.6 oz) 023 10:39 AM PLUMBING INSPECTOR Height 162.6 cm (5' 4) 06/11/2023 10:3 9 AM PLUMBING INSPECTOR Body Mass Index 33.26 06/11/2023 10:39 AM PLUMBING INSPECTOR Plan of Treatment Health Maintenance Due Date [...] age to complete this topic Insurance MEDICAID Care Teams Vasc Tech Relationship Specialty Start Date End Date None, Provider, PCP - General 05/05/18
--- OUTSIDE RECORDS SUMMARY | 2025-02-06 18:37 | XMS_ITS | Clinical Summary ---
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 Gender Identity Not on file Sexual Orientation Not on file Obstetrics History Last Filed Vital Signs Vital Sign Reading Time Taken Comments Blood Pressure 129/85 05/24/2021 10:44 PM MANAGER MOUNTAIN Pulse 91 05/24/2021 10:44 PM MANAGER MOUNTAIN Temperature 37.3 C (99.2 F) 05/24/2021 9:48 PM MANAGER MOUNTAIN Respiratory Rate 18 05/24/2021 10:44 PM MANAGER MOUNTAIN Oxygen Saturation 97% 05/24/2021 10:44 PM MANAGER MOUNTAIN Inhaled Oxygen Concentration - - Weight 92.2 kg (203 lb 4.2 oz) 05/24/2021 9:48 P M MANAGER MOUNTAIN Height 162.6 cm (5' 4) 05/24/2021 9:48 PM MANAGER MOUNTAIN Body Mass Index 34.89 05/24/2021 9:48 PM MANAGER MOUNTAIN Plan of Treatment Not on file Insurance [facility] [employer] PPO Care Teams Clinical Program Consultant Relationship Specialty Start Date End Date No, Physician PCP - General 05/24/21
[2025-02-06 18:38] LABS: Hematocrit 40.1 % (37.0-47.0); Hemoglobin 12.9 g/dL (12.0-15.0); Immature Granulocyte Percent A 0.2 % (0-0.5); Lymphocytes Absolute Auto 3.02 K/mm3 (0.9-3.2); Mean Corpuscular HGB Conc 32.2 g/dl (32-36); Mean Corpuscular Hemoglobin 29.0 pg (26-34); Mean Corpuscular Volume 90.1 fl (80-100); Nucleated Red Blood Cells Absolute Auto 0.000 K/mm3 (0.0-0.012); Nucleated Red Blood Cells Perc 0.0 % (0.0-0.2); Platelet Count Result 378 k/mm3 (150-375); Red Blood Count 4.45 M/mm3 (4.2-5.4); White Blood Count 8.8 K/mm3 (4.5-10.0)
[2025-02-06 18:47] LABS: Alanine Aminotransferase 19 U/L (6-35); Albumin Level 4.0 g/dL (3.5-5.1); Alkaline Phosphatase 68 U/L (38-126); Anion Gap 9 mmol/L (4-12); Aspartate Amino Transferase 23 U/L (14-36); Bilirubin,Total 0.3 mg/dL (0.2-1.3); Blood Urea Nitrogen 18 mg/dL (7-17); Calcium 8.9 mg/dL (8.4-10.2); Carbon Dioxide 23 mmol/L (22-30); Chloride 105 mmol/L (98-107); Estimated CRCL calculation 94 ml/min; Estimated Glomerular Filt Rate > 60; Glucose 146 mg/dL (65-110); Potassium 3.6 mmol/L (3.4-5.0); Sodium 137 mmol/L (137-145); Total Protein 7.0 g/dL (6.3-8.2)
[2025-02-06 18:48] LABS: Add Urine Microscopic? NO; Appearance Urine Clear (Clear); Glucose Urine UA Negative (Negative); Leukocyte Esterase Ur Negative LEU/UL (Negative); Nitrate Urine Negative (Negative); Specific Grav Ur 1.014 (1.001-1.035)
[2025-02-06] MEDS: ONDANSETRON INJ 4 MG/2 ML VIAL IV PUSH (18:50)
[2025-02-06] MEDS: KETOROLAC 30 MG/ML VIAL (*BKC) IV PUSH (18:50)
[2025-02-06 19:01] LABS: Alanine Aminotransferase 18 U/L (6-35); Albumin Level 4.0 g/dL (3.5-5.1); Alkaline Phosphatase 67 U/L (38-126); Anion Gap 7 mmol/L (4-12); Aspartate Amino Transferase 22 U/L (14-36); Bilirubin,Total 0.2 mg/dL (0.2-1.3); Blood Urea Nitrogen 17 mg/dL (7-17); Calcium 8.9 mg/dL (8.4-10.2); Carbon Dioxide 25 mmol/L (22-30); Chloride 106 mmol/L (98-107); Estimated CRCL calculation 92 ml/min; Estimated Glomerular Filt Rate > 60; Glucose 126 mg/dL (65-110); Potassium 3.7 mmol/L (3.4-5.0); Sodium 138 mmol/L (137-145); Total Protein 6.9 g/dL (6.3-8.2)
== END 2025-02-06 19:56 | disposition home or self-care (01) ==
PROVIDERS: Emergency Medicine; Emergency Provider Student in an Organized Health Care Education/Training Program; PCP Nurse Practitioner Family
DX: R10.9 Unspecified abdominal pain (principal); K21.9 Gastro-esophageal reflux disease without esophagitis; F17.210 Nicotine dependence, cigarettes, uncomplicated; F17.290 Nicotine dependence, other tobacco product, uncomplicated; Z87.442 Personal history of urinary calculi; Z90.49 Acquired absence of other specified parts of digestive tract; R93.421 Abnormal radiologic findings on diagnostic imaging of right kidney
CPT/HCPCS: 36415; 74176; 80053; 81003; 81025; 85025; 96374; 96375; 99284; J1885; J2405